=== PATIENT | female | born 1970 | race African-American/Black ===

== ENCOUNTER 2024-04-22 15:35 | Observation (INO) ==
--- NOTE | 2024-04-22 16:21 | Emergency Department Note ---
HPI - Extremity Problem General Chief complaint: Extremity Injury, Lower Stated complaint: swollen feet Time Seen by Provider: 04/22/24 15:37 Source: patient Mode of arrival: WHEELCHAIR Limitations: no limitations History of Present Illness HPI Narrative: 54-year-old female presents to ER with complaint of bilateral lower leg edema, on arrival patient has +4-5 pitting edema of her bilateral lower legs. MD Complaint: Reports extremity swelling Onset (ago): day(s) (2) Pain Consistency: Reports intermittent Location: Reports lower extremity Quality: Reports aching and other (Throbbing) Radiation: Reports none Relieving factors: Reports elevation, medication and rest Exacerbating factors: Reports weight bearing, walking and palpation Associated symptoms: Reports myalgias and arthralgias Context: Reports history of peripheral vascular disease Related Data Allergies Allergy/AdvReac Type Severity Reaction Status Date / Time No Known Drug Allergies Allergy Verified 04/22/24 21:22 Review of Systems Status of ROS 10 or more systems reviewed and unremark able except as noted in history and below; Negative unobtainable due to endotracheal tube, Negative unobtainable due to medical condition and Negative unobtainable due to mental status Constitutional Reports: fatigue; Denies: fever, chills, change in weight, malaise, night sweats, change in sleep pattern or other Eyes Denies: change in vision, blurry vision, blind spots, light sensitivity, eye discomfort, eye discharge, dry eyes, increased production of tears, floaters, seeing flashes, decreased night vision or other Ears, nose, mouth, and throat Reports: nasal congestion; Denies: throat pain, neck pain, throat swelling, difficulty swallowing, hoarseness, mouth pain, swelling of lips/tongue, dry mouth, bad breath, ear pain, ear discharge, change in hearing, tinnitus, vertigo, nasal discharge, nose bleeds, post nasal drip or other Cardiovascular Denies: chest pain, palpitations, edema, swelling of feet/ankles, lightheadedness, shortness of breath with exertion, shortness of breath when lying down, leg pain with exertion, bluish discoloration of hands/feet or other Respiratory Denies: shortness of breath, cough, wheezing, stridor, pain on inspiration, change in phlegm color, coughing up blood, chest congestion or other Gastrointestinal Reports: difficulty swallowing; Denies: abdominal pain, nausea, vomiting, coffee grounds in vomit, heartburn, diarrhea, constipation, bloating, belching, excessive passing of gas, feeling full early, change in bowel habits, painful bowel movements, rectal pain, rectal swelling, rectal itching, change in stool character, blood in stool, mucus in stool, white/light colored stool, fatty stool or other Genitourinary Denies: painful urination, urinary frequency, urinary urgency, urinary incontinence, blood in urine, difficulty voiding, decreased urine ouput, pelvic pain, painful menstruation, vaginal bleeding, vaginal discharge, irregular period, change in menstrual flow, absence of menstruation, genital lesion, genital itching, vaginal dryness, vaginal odor, pain during intercourse, difficulty conceiving, change in libido or other Musculoskeletal Reports: extremity pain and extremity swelling; Denies: back pain, neck pain, joint pain, limited range of motion, joint swelling, muscle cramps, muscle weakness, loss of height or other Integumentary/Breast Denies: rash, itching, redness, skin pain, skin tenderness, skin swelling, sores, new lesion, changing lesion, non-healing lesion, changes in skin color, jaundice, stretch collier, acne, nail changes, change in hair, breast pain, breast swelling, nipple discharge, breast mass, breast skin changes, change in breast shape or other Neurological Denies: headache, numbness in extremities, weakness in extremities, lack of coordination, dizziness, vertigo, confusion, behavioral changes, slurred speech, difficulty communicating thoughts, seizure-like activity, involuntary movements or other Psychiatric Reports: anxiety; Denies: mood swings, panic attacks, change in sleep pattern, hopelessness, loss of interest, irritability, paranoia, memory loss, difficulty concentrating, visual hallucinations, auditory hallucinations, tactile hallucinations, suicidal ideation, homicidal ideation or other Endocrine Reports: fatigue; Denies: excessive urination, excessive thirst, cold intolerance, excessive sweating, flushing, heat intolerance, deepening of the voice, change in body appearance, change in libido or other Hematologic/Lymphatic Denies: easy bruising, easy bleeding, enlarged lymph nodes or other Allergic/Immunologic Reports: wheezing; Denies: hives, throat swelling, tongue swelling, facial swelling, itchy eyes, seasonal allergies, food intolerance or other [facility] Medical History (Updated 07/18/24 @ 17:53 by Pam Beltran RN) Indigestion Stroke Surgical History (Updated 04/22/24 @ 16:15 by Renetta Pires RN) History of left hip replacement History of partial hysterectomy History of tubal ligation Social History Smoking status: current every day smoker Within the past year, how often did you have a drink containing alcohol: never Within the past year, how often did you have six or more drinks on one occasion: never Score interpretation: A score less than 3 is consistent with normal alcohol consumption. Problems where you live: no known problems Highest level of school completed/degree received: high school Feel stressed/tense/nervous/anxious/difficulty sleeping: to some extent Life stressor details: Current medical condition Gender Identity: female Exam Constitutional: normal general appearance, distress noted (moderate), abnormal body habitus (overweight), limitations noted (physical limitations) and alert Vital Signs - 24 hr 04/22/24 15:45 04/22/24 17:23 04/22/24 18:30 Temperature 99 F Pulse Rate 119 H 111 H Respiratory Rate 18 18 Blood Pressure 122/75 122/75 114/68 Pulse Oximetry 95 95 Oxygen Delivery Me thod Room Air Room Air HENMT: normocephalic, head/scalp atraumatic, hearing grossly normal bilaterally, external ears normal, EACs normal, nasal mucous membranes normal, external nose normal, oral mucous membranes normal, oropharynx normal, dentition normal and gingiva normal Eyes: PERRL, EOMs intact bilaterally, conjunctivae normal, no scleral icterus, no papilledema, normal visual ocampo by confrontation, alignment normal, periorbital findings normal and no nystagmus Neck/C-Spine: visual inspection normal, trachea midline, cervical spine nontender, cervical full ROM noted, supple, no meningeal signs and thyroid normal Lymph: no lymphadenopathy noted and no lymphedema noted Chest: inspection of chest normal, palpation of chest normal, inspection of breast(s) abnormal and palpation of breast(s) abnormal Respiratory: breath sounds equal bilaterally, normal respiratory effort, clear to auscultation bilaterally, no wheezes, no rales, no retractions and no use of accessory muscles Cardiovascular: normal heart rate noted, regular rhythm noted, no gallop, no rub, no murmur, no JVD, no clicks and no additional abnormal heart sounds Gastrointestinal: abdomen normal to inspection, abdomen soft to palpation, nontender to palpation, nondistended, normoactive bowel sounds, no hepatosplenomegaly, no masses, no pulsatile mass, no ascites and normal rectal exam (deferred) Genitourinary: no CVA tenderness, bladder normal to palpation, external appearance abnormal, vaginal abnormality noted (deferred), cervical abnormality noted, bimanual exam abnormal and inguinal lymphadenopathy noted Back/Pelvis: spine normal to inspection, no thoracic spine tenderness, no lumbar spine tenderness, thoracic spine ROM normal, lumbar spine ROM normal and no paraspinal muscle tenderness noted Extremities: normal to inspection, abnormal to palpation, tenderness noted, full ROM, no joint enlargement and no deformity Patient has bilateral lower leg +5 pitting edema with tenderness on palpation and with range of motion. 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, no movement abnormality noted, no focal motor deficit noted, no sensory deficits noted, gait abnormality noted (unable to access), speech normal, coordination normal, no pronator drift noted, no fasciculations noted and GCS normal Psychiatry: Mental Status Exam documented within this Exam's Psych section mental status grossly normal, oriented x3, thought process normal, cooperative, affect normal, psychomotor activity normal and memory normal Feel stressed/tense/nervous/anxious/difficulty sleeping: to some extent Life stressor details: Current medical condition Skin: skin color normal, no rash, no lesions, no ecchymosis noted, no wounds, no lacerations, skin turgor normal, no jaundice, no petechiae, no mottling, nails normal and no alopecia Course Course Hospital Course: 1800 - Handoff rec'd from Liam Pires, PERFORMANCE ANALYST. Pending dispo. Pt with K+ 2.2 and +4 alysa LE swelling. Rec'd Bumex 2mg IV and 40meq PO Potassium. Vital Signs Vital signs: Vital Signs Temperature 99 F 04/22/24 15:45 Pulse Rate 119 H 04/22/24 15:45 Respiratory Rate 18 04/22/24 15:45 Blood Pressure 122/75 04/22/24 15:45 Pulse Oximetry 95 04/22/24 15:45 Oxygen Delivery Method Room Air 04/22/24 15:45 Temperature 98.7 F 04/23/24 03:58 Pulse Rate 100 H 04/23/24 03:58 Respiratory Rate 19 04/23/24 03:58 Blood Pressure 110/67 04/23/24 03:58 Pulse Oximetry 90 L 04/23/24 03:58 Oxygen Delivery Method Room Air 04/23/24 03:58 MDM - Extremity (Nontraumatic) MDM Narrative Medical decision making narrative: Pt with +4 alysa pitting edema. Rec'd 2mg IV Bumex. K+ 2.2. Has received 40meq PO Potassium thus far. Given patient's severe hypokalemia, I have deemed the patient will need admission for further potassium replacement. I have discussed the clinical case including, pertinent positives and negatives with Geovanna in Utilization Review, and the need for further testing/observation in the inpatient arena. She agrees pt meets criteria for observation status. I have made the patient aware of the current disposition plan and she is in agreement. Differential Diagnosis Differential diagnosis: Likely cellulitis, superficial thrombophlebitis, lower extremity edema, deep vein thrombosis of lower extremity and other (CHF, Arterial Occlusion) Medical Records Attestation: I reviewed the patient's medical records. Lab Data Attestation: I reviewed the patient's lab results. Labs: Lab Results 04/22/24 04/22/24 Range/Units 16:30 17:55 WBC 11.6 H (4.3-9.3) K/uL RBC 4.6 (4.00-5.50) M/uL Hgb 12.8 (12.5-15.8) gm/dL Hct 39.7 (35.9-46.7) % MCV 85.7 (81.0-93.7) fl MCH 27.5 L (27.6-32.2) pg MCHC 32.1 L (33.1-35.3) g/dl RDW 15.6 H (11.4-14.2) % Plt Count 455 H (152-353) K/uL MPV 6.8 L (6.9-10.8) fl Gran % 67.1 (47.8-71.3) % Lymph % (Auto) 28.4 (20.0-43.0) % [place] % (Auto) 3.9 (3.6-9.8) % Eos % (Auto) 0.0 L (0.4-2.8) % Baso % (Auto) 0.6 (0.1-0.85) Lymph # (Auto) 3.3 H (1.1-3.1) [place] # (Auto) 0.5 L (1.1-3.1) Eos # (Auto) 0.0 (0.0-0.2) Baso # (Auto) 0.1 (0.0-0.1) Absolute Gran (auto) 7.8 H (2.3-6.0) Sodium 143 (136-145) mmol/L Potassium 2.2 L* (3.6-5.2) mmol/L Chloride 100.0 (98-107) mmol/L Carbon Dioxide 32 (21-32) mmol/L Anion Gap 11.0 (4-14) mEq/L BUN 6 L (7-18) mg/dL Creatinine 0.7 (0.6-1.3) mg/dL Estimated GFR 102.7 (>59.9) Glucose 154 H (70-110) mg/dL Calcium 9.8 (8.5-10.1) mg/dL B-Natriuretic Peptide 6.7 (0-100) pg/mL Urine Color Yellow (STRAW/YELL.) Urine Appearance Clear (CLEAR) Ur Specific [place] 1.010 (1.001-1.035) Urine Protein Negative (NEGATIVE) Urine Glucose (UA) Normal (NORMAL) Urine Ketones Negative (NEGATIVE) Urine Occult Blood Negative (NEG - TRACE) Urine Nitrite Negative (NEGATIVE) Urine Bilirubin Negative (NEGATIVE) Urine Urobilinogen Normal (NORMAL) Ur Leukocyte Esterase Negative (NEGATIVE) Fluid pH 7.0 (5 - 9) Imaging Data Imaging ordered: Venous US Attestation: I have reviewed the pertinent imaging results. Radiologist's impression: EXAM: US ARTERIAL DUPLEX LE LT HISTORY: ABSENT PULSE LT FOOT/EDEMA ; COMPARISON: None. TECHNIQUE: Grayscale, color-flow, and Doppler images FINDINGS: There is plaque in the left common femoral artery but good color flow and normal Doppler waveform. There is flow in the superficial femoral artery proximally, mid, and distally with normal color flow normal Doppler waveforms. In the popliteal fossa there is a normal arterial waveform and color flow the vessel is poorly visualized. There is normal color flow normal Doppler in the posterior tibial artery and in the dorsalis pedis artery. There is extensive edema in the dorsum of the foot. Common femoral artery 131 centimeter/second SFA proximal 112 centimeter/second SFA mid 137 centimeters/second SFA distal 110 centimeters/second Popliteal proximal 70 centimeters/second Popliteal distal 53 centimeters/second Posterior tibial artery proximal 49 centimeters/second Posterior tibial artery mid 69 centimeters/second Posterior tibial artery distal 38 centimeters/second Dorsalis pedis artery 52 centimeters/second IMPRESSION: There is disease in the arterial system but there is flow to the foot. Severe edema in the dorsum of the foot. THIS IS AN ELECTRONICALLY VERIFIED FINAL REPORT 04/22/2024 6:39 PM - Electronically signed by Ck Reagan MD Smoking Cessation Time spent discussing smoking cessation with patient: 3 to 10 minutes Patient Acknowledges Need for Cessation: No Additional Comments: I have discussed with and counseled the patient on the health risk of tobacco and cigarette smoke, including heart disease and stroke. There is also the obvious economic benefit to quitting smoking. I have encouraged the patient to pick a date and stop smoking and follow-up with their primary care provider for more information on smoking cessation. I have assured they are aware of the available resources. This included approximately 3 to 5 minutes of education, interaction and documentation. Discharge Plan Discharge Patient Disposition: Admitted As Observation Condition: Improved Clinical Impression: Bilateral lower extremity edema, Acute hypokalemia, Tobacco abuse Interventions: ED Discharge Assessment Last Done: 04/22/24 19:55 ED Discharge Vital Sign Last Done: 04/22/24 19:55 Emergency Department Charge Sheet Last Done: 04/22/24 19:55 Time of Disposition: 18:30 Discharge Date/Time: 04/22/24 19:56
[2024-04-22 16:42] LABS: Basophils #(Absolute) Auto 0.1 (0.0-0.1); Basophils%(Percent) Auto 0.6 (0.1-0.85); Granulocytes % - Auto 67.1 % (47.8-71.3); Granulocytes#(Absolute)- Auto 7.8 (2.3-6.0); Hematocrit 39.7 % (35.9-46.7); Mean Corpuscular Volume 85.7 fl (81.0-93.7); Monocytes #(Absolute)- Auto 0.5 (1.1-3.1); Monocytes %(Percent)- Auto 3.9 % (3.6-9.8); Platelet Count 455 K/uL (152-353); White Blood Count 11.6 K/uL (4.3-9.3)
[2024-04-22] MEDS ORDERED: BUMETANIDE 1 MG/4 ML VIAL ONE ×2 (16:51→17:10)
[2024-04-22 17:05] LABS: Potassium 2.2 mmol/L (3.6-5.2)
[2024-04-22] MEDS ORDERED: 0.9 % SODIUM CHLORIDE 50 ML IV ONE (17:19)
[2024-04-22] MEDS: BUMETANIDE 1 MG/4 ML VIAL IVP ONE (17:23)
[2024-04-22] MEDS ORDERED: POTASSIUM CL 40 MEQ/30 ML 40 MEQ/30 ML LIQUID PO ONE (17:24)
[2024-04-22] MEDS: POTASSIUM CL 40 MEQ/30 ML 40 MEQ/30 ML LIQUID PO STA (17:26)
[2024-04-22] MEDS: NICOTINE 21 MG/HR .TD24 TD STA (17:50)
[2024-04-22 18:06] LABS: Urine Appearance CLEAR (CLEAR); Urine Blood NEGATIVE (NEG - TRACE); Urine Color YELLOW (STRAW/YELL.); Urine Urobilinogen Normal (NORMAL)
[2024-04-22] MEDS ORDERED: ONDANSETRON HCL/PF 4 MG/2 ML VIAL INJ PRN (20:54)
[2024-04-22] MEDS ORDERED: bisacodyL 10 MG SUPP.RECT PR PRN (20:54)
[2024-04-22] MEDS ORDERED: MAGNESIUM, ALUMINUM HYDROXIDE 30 ML ORAL.SUSP PO PRN (20:54)
[2024-04-22] MEDS: ACETAMINOPHEN 500 MG TABLET PO PRN (21:40)
[2024-04-23] MEDS: HYDROCODONE/ACETAMINOPHEN 5/325 MG TABLET PO ONE (01:26)
[2024-04-23 05:03] LABS: Potassium 2.5 mmol/L (3.6-5.2)
[2024-04-23 05:13] LABS: Basophils #(Absolute) Auto 0.1 (0.0-0.1); Eosinophils%(Percent) Auto 0.1 % (0.4-2.8); Granulocytes % - Auto 54.5 % (47.8-71.3); Granulocytes#(Absolute)- Auto 5.4 (2.3-6.0); Hematocrit 37.7 % (35.9-46.7); Mean Corpuscular Volume 86.1 fl (81.0-93.7); Monocytes #(Absolute)- Auto 0.5 (1.1-3.1); Monocytes %(Percent)- Auto 4.8 % (3.6-9.8); Platelet Count 421 K/uL (152-353); White Blood Count 9.9 K/uL (4.3-9.3)
[2024-04-23 08:13] VITALS: RESP 20
[2024-04-23] MEDS: ENOXAPARIN SODIUM 40 MG/0.4 ML SYRINGE SUBQ SCH (08:29)
[2024-04-23] MEDS: PANTOPRAZOLE SODIUM 40 MG TABLET.DR PO SCH (08:29)
[2024-04-23] MEDS ORDERED: MAGNESIUM SULFATE/D5W 1 GM/100 ML PIGGYBACK IV ONE (11:35)
[2024-04-23] MEDS ORDERED: POTASSIUM CHLORIDE IN WATER 10 MEQ/100 ML PIGGYBACK IV ONE ×2 (11:45→13:00)
[2024-04-23 12:06] VITALS: BP 131/81; PULSE 102; TEMP 98.3
[2024-04-23] MEDS ORDERED: MAGNESIUM OXIDE 400 MG TABLET PO SCH (13:00)
[2024-04-23] MEDS ORDERED: POTASSIUM CHLORIDE 20 MEQ TAB.ER.PRT PO SCH (13:00)
[2024-04-23] MEDS: POTASSIUM CHLORIDE 20 MEQ TAB.ER.PRT PO ONE (13:01)
[2024-04-23] MEDS: MAGNESIUM OXIDE 400 MG TABLET PO ONE (13:01)
--- NOTE | 2024-04-23 13:42 | Discharge Summary ---
DS: Providers Provider Date of admission: 04/22/24 18:57 Primary care physician: Tanmay Charles MD DS: Summary Hospital Course Hospital Course: 1800 - Handoff rec'd from Liam Pires NP. Pending dispo. Pt with K+ 2.2 and +4 alysa LE swelling. Rec'd Bumex 2mg IV and 40meq PO Potassium. Time Spent with Patient Time attestation: Total time spent providing and/or coordinating discharge services: Exam Constitutional: abnormal general appearance (disheveled) and (chronically ill), distress noted (moderate), abnormal body habitus (overweight), limitations noted (physical limitations) and alert Vital Signs - 24 hr 04/22/24 15:45 04/22/24 17:23 04/22/24 18:30 Temperature 99 F Pulse Rate 119 H 111 H Pulse Rate [Bilate ral] Respiratory Rate 18 18 Blood Pressure 122/75 122/75 114/68 Blood Pressure [Ri ght Radial Artery] Pulse Oximetry 95 95 Oxygen Delivery Ak thod Room Air Room Air 04/22/24 19:30 04/22/24 19:46 04/22/24 19:55 Temperature Pulse Rate 112 H 112 H Pulse Rate [Bilate ral] Respiratory Rate 18 18 Blood Pressure 122/86 114/78 114/78 Blood Pressure [Ri ght Radial Artery] Pulse Oximetry 95 95 Oxygen Delivery Ak thod Room Air 04/22/24 20:53 04/22/24 22:00 04/22/24 23:48 Temperature 98.6 F 99.2 F Pulse Rate Pulse Rate [Bilate ral] 113 H 103 H Respiratory Rate 22 17 Blood Pressure Blood Pressure [Ri ght Radial Artery] 128/81 107/53 Pulse Oximetry 94 L 92 L Oxygen Delivery Ak thod Room Air Room Air Room Air 04/23/24 03:58 04/23/24 08:00 04/23/24 12:00 Temperature 98.7 F 98.4 F 98.3 F Pulse Rate Pulse Rate [Bilate ral] 100 H 93 H 102 H Respiratory Rate 19 20 20 Blood Pressure Blood Pressure [Ri ght Radial Artery] 110/67 138/72 131/81 Pulse Oximetry 90 L 92 L 93 L Oxygen Delivery Ak thod Room Air Room Air Room Air HENMT: normocephalic, head/scalp atraumatic, hearing grossly normal bilaterally, external ears normal, EACs normal, nasal mucous membranes normal, external nose normal, oral mucous membranes normal, oropharynx abnormal, dentition abnormal and gingiva normal Eyes: PERRL, EOMs intact bilaterally, conjunctivae normal, no scleral icterus, no papilledema, normal visual ocampo by confrontation, alignment normal, periorbital findings normal and no nystagmus Neck/C-Spine: trachea midline, cervical spine nontender, abnormal cervical ROM noted, supple, no meningeal signs and thyroid normal Lymph: no lymphadenopathy noted and no lymphedema noted Chest: inspection of chest normal, palpation of chest normal, inspection of breast(s) abnormal and palpation of breast(s) abnormal Respiratory: breath sounds equal bilaterally, normal respiratory effort, clear to auscultation bilaterally, no wheezes, no rales, no retractions and no use of accessory muscles Cardiovascular: heart rate abnormal (tachycardic), regular rhythm noted, no gallop, no rub, no murmur, no JVD, no clicks, peripheral pulses 2+ throughout and no additional abnormal heart sounds Gastrointestinal: abdomen normal to inspection, abdomen soft to palpation, nontender to palpation, nontender to percussion, nondistended, normoactive bowel sounds, no hepatosplenomegaly, no masses, no pulsatile mass, no ascites and normal rectal exam (deferred) Genitourinary: no CVA tenderness, bladder normal to palpation, external appearance abnormal, vaginal abnormality noted (deferred), cervical abnormality noted, bimanual exam abnormal and inguinal lymphadenopathy noted Back/Pelvis: spine normal to inspection, no thoracic spine tenderness, no lumbar spine tenderness, thoracic spine ROM normal, lumbar spine ROM normal and no paraspinal muscle tenderness noted Extremities: normal to inspection, abnormal to palpation, tenderness noted, full ROM, no joint enlargement and no deformity Patient has bilateral lower leg +5 pitting edema with tenderness on palpation and with range of motion. 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, no movement abnormality noted, no focal motor deficit noted, no sensory deficits noted, gait abnormality noted (unable to access), speech normal, coordination normal, no pronator drift noted, no fasciculations noted and GCS normal Psychiatry: Mental Status Exam documented within this Exam's Psych section mental status abnormal, oriented x3, thought process abnormality noted, uncooperative, affect abnormality noted (depressed) and (tearful), psychomotor abnormality noted (agitated) and (restless) and memory normal Feel stressed/tense/nervous/anxious/difficulty sleeping: to some extent Life stressor details: Current medical condition Skin: skin color normal, no rash, no lesions, no ecchymosis noted, no wounds, no lacerations, skin turgor abnormal, no jaundice, no petechiae, no mottling, nails normal and no alopecia DS: Data Data Completed and Pending Labs on day of discharge: Labs from last 24 hours 04/23/24 04/22/24 04/22/24 04:20 17:55 16:30 WBC 9.9 H 11.6 H RBC 4.4 4.6 Hgb 12.2 L 12.8 Hct 37.7 39.7 MCV 86.1 85.7 MCH 27.9 27.5 L MCHC 32.4 L 32.1 L RDW 15.7 H 15.6 H Plt Count 421 H 455 H MPV 6.8 L 6.8 L Gran % 54.5 67.1 Lymph % (Auto) 39.6 28.4 [place] % (Auto) 4.8 3.9 Eos % (Auto) 0.1 L 0.0 L Baso % (Auto) 1.0 H 0.6 Lymph # (Auto) 3.9 H 3.3 H [place] # (Auto) 0.5 L 0.5 L Eos # (Auto) 0.0 0.0 Baso # (Auto) 0.1 0.1 Absolute Gran (auto) 5.4 7.8 H Sodium 143 143 Potassium 2.5 L 2.2 L* Chloride 102.0 100.0 Carbon Dioxide 34 H 32 Anion Gap 7.0 11.0 BUN 5 L 6 L Creatinine 0.6 0.7 Estimated GFR 106.6 102.7 Glucose 105 154 H Calcium 9.7 9.8 Phosphorus 2.5 Magnesium 1.6 L Total Bilirubin 0.26 AST 18 ALT 18 L Alkaline Phosphatase 131 B-Natriuretic Peptide 6.7 Total Protein 6.8 Albumin 2.7 L Triglycerides 91 Cholesterol 196 LDL Cholesterol 102.0 H VLDL Cholesterol, Calc 18 HDL Cholesterol 69 LDL/HDL Ratio 1.5 Cholesterol/HDL Ratio 2 Urine Color Yellow Urine Appearance Clear Ur Specific [place] 1.010 Urine Protein Negative Urine Glucose (UA) Normal Urine Ketones Negative Urine Occult Blood Negative Urine Nitrite Negative Urine Bilirubin Negative Urine Urobilinogen Normal Ur Leukocyte Esterase Negative Fluid pH 7.0 Discharge Plan Discharge Condition: Improved Hospital Course: 1800 - Handoff rec'd from Liam Pires NP. Pending dispo. Pt with K+ 2.2 and +4 alysa LE swelling. Rec'd Bumex 2mg IV and 40meq PO Potassium. Interventions: MED/SURG & ICU Observation Charge Sheet Last Done: 04/23/24 06:21 Print Language: Malawian Follow-Ups: Tanmay Charles MD [Primary Care Provider] -
[2024-04-23] MEDS ORDERED: POTASSIUM PHOS M BASIC D BASIC IV ONE (14:00)
[2024-04-23] MEDS ORDERED: SODIUM CHLORIDE 0.9% IV ONE (14:00)
--- NOTE | 2024-04-23 14:05 | Short Stay Summary ---
H&P: HPI History of Present Illness Chief complaint: SEVERE ADELE LE EDEMA,SEVERE HYPOKALEMIA,TOBACCO ABU Narrative: 54-year-old female presents to ER with complaint of bilateral lower leg edema, on arrival patient has +4-5 pitting edema of her bilateral lower legs. hurts all over and does not feel well and increased agitation and shortness of breath MD Complaint: Reports extremity swelling Onset (ago): day(s) 2-7 days very poor historian and the story changes every time a question is readdressed by the examiner Review of Systems Status of ROS 10 or more systems reviewed and unremark able except as noted in history and below; Negative unobtainable due to endotracheal tube, Negative unobtainable due to medical condition and Negative unobtainable due to mental status Constitutional Reports: fatigue; Denies: fever, chills, change in weight, malaise, night sweats, change in sleep pattern or other Eyes Denies: change in vision, blurry vision, blind spots, light sensitivity, eye discomfort, eye discharge, dry eyes, increased production of tears, floaters, seeing flashes, decreased night vision or other Ears, nose, mouth, and throat Reports: difficulty swallowing and nasal congestion; Denies: throat pain, neck pain, throat swelling, hoarseness, mouth pain, swelling of lips/tongue, dry mouth, bad breath, ear pain, ear discharge, change in hearing, tinnitus, vertigo, nasal discharge, nose bleeds, post nasal drip or other Cardiovascular Denies: chest pain, palpitations, edema, swelling of feet/ankles, lightheadedness, shortness of breath with exertion, shortness of breath when lying down, leg pain with exertion, bluish discoloration of hands/feet or other Respiratory Reports: wheezing; Denies: shortness of breath, cough, stridor, pain on inspiration, change in phlegm color, coughing up blood, chest congestion or other Gastrointestinal Reports: difficulty swallowing; Denies: abdominal pain, nausea, vomiting, coffee grounds in vomit, heartburn, diarrhea, constipation, bloating, belching, excessive passing of gas, feeling full early, change in bowel habits, painful bowel movements, rectal pain, rectal swelling, rectal itching, change in stool character, blood in stool, mucus in stool, white/light colored stool, fatty stool or other Genitourinary Denies: painful urination, urinary frequency, urinary urgency, urinary incontinence, blood in urine, difficulty voiding, decreased urine ouput, pelvic pain, painful menstruation, vaginal bleeding, vaginal discharge, irregular period, change in menstrual flow, absence of menstruation, genital lesion, genital itching, vaginal dryness, vaginal odor, pain during intercourse, difficulty conceiving, change in libido or other Musculoskeletal Reports: extremity pain and extremity swelling; Denies: back pain, neck pain, joint pain, limited range of motion, joint swelling, muscle cramps, muscle weakness, loss of height or other Integumentary/Breast Denies: rash, itching, redness, skin pain, skin tender ness, skin swelling, sores, new lesion, changing lesion, non-healing lesion, changes in skin color, jaundice, stretch collier, acne, nail changes, change in hair, breast pain, breast swelling, nipple discharge, breast mass, breast skin changes, change in breast shape or other Neurological Denies: headache, numbness in extremities, weakness in extremities, lack of coordination, dizziness, vertigo, confusion, behavioral changes, slurred speech, difficulty communicating thoughts, seizure-like activity, involuntary movements or other Psychiatric Reports: anxiety; Denies: mood swings, panic attacks, change in sleep pattern, hopelessness, loss of interest, irritability, paranoia, memory loss, difficulty concentrating, visual hallucinations, auditory hallucinations, tactile hallucinations, suicidal ideation, homicidal ideation or other Endocrine Reports: fatigue; Denies: excessive urination, excessive thirst, cold intolerance, excessive sweating, flushing, heat intolerance, deepening of the voice, change in body appearance, change in libido or other Hematologic/Lymphatic Denies: easy bruising, easy bleeding, enlarged lymph nodes or other Allergic/Immunologic Reports: wheezing; Denies: hives, throat swelling, tongue swelling, facial swelling, itchy eyes, seasonal allergies, food intolerance or other [facility] Medical History (Updated 04/23/24 @ 13:58 by Anastasia Hastings DO) Hypoalbuminemia Tachycardia Hypertension Physical debility Indigestion Stroke Surgical History History of left hip replacement History of partial hysterectomy History of tubal ligation Social History Smoking status: current every day smoker Within the past year, how often did you have a drink containing alcohol: never Within the past year, how often did you have six or more drinks on one occasion: never Score interpretation: A score less than 3 is consistent with normal alcohol consumption. Problems where you live: no known problems Highest level of school completed/degree received: high school Feel stressed/tense/nervous/anxious/difficulty sleeping: to some extent Life stressor details: Current medical condition Gender Identity: female Meds Home Medications and Allergies Allergies Allergy/AdvReac Type Severity Reaction Status Date / Time No Known Drug Allergies Allergy Verified 04/22/24 21:22 Exam Constitutional: abnormal general appearance (disheveled), (chronically ill) and (frail appearing), distress noted (moderate), abnormal body habitus (overweight), limitations noted (physical limitations) and alert Vital Signs - 24 hr 04/22/24 15:45 04/22/24 17:23 04/22/24 18:30 Temperature 99 F Pulse Rate 119 H 111 H Pulse Rate [Bilate ral] Respiratory Rate 18 18 Blood Pressure 122/75 122/75 114/68 Blood Pressure [Ri ght Radial Artery] Pulse Oximetry 95 95 Oxygen Delivery Az thod Room Air Room Air 04/22/24 19:30 04/22/24 19:46 04/22/24 19:55 Temperature Pulse Rate 112 H 112 H Pulse Rate [Bilate ral] Respiratory Rate 18 18 Blood Pressure 122/86 114/78 114/78 Blood Pressure [Ri ght Radial Artery] Pulse Oximetry 95 95 Oxygen Delivery Az thod Room Air 04/22/24 20:53 04/22/24 22:00 04/22/24 23:48 Temperature 98.6 F 99.2 F Pulse Rate Pulse Rate [Bilate ral] 113 H 103 H Respiratory Rate 22 17 Blood Pressure Blood Pressure [Ri ght Radial Artery] 128/81 107/53 Pulse Oximetry 94 L 92 L Oxygen Delivery Az thod Room Air Room Air Room Air 04/23/24 03:58 04/23/24 08:00 04/23/24 12:00 Temperature 98.7 F 98.4 F 98.3 F Pulse Rate Pulse Rate [Bilate ral] 100 H 93 H 102 H Respiratory Rate 19 20 20 Blood Pressure Blood Pressure [Ri ght Radial Artery] 110/67 138/72 131/81 Pulse Oximetry 90 L 92 L 93 L Oxygen Delivery Az thod Room Air Room Air Room Air HENMT: normocephalic, head/scalp atraumatic, hearing grossly normal bilaterally, external ears normal, EACs normal, nasal mucous membranes normal, external nose normal, oral mucous membranes normal, oropharynx normal, dentition abnormal and gingiva normal Eyes: PERRL, EOMs intact bilaterally, conjunctivae normal, no scleral icterus, papilledema noted, normal visual ocampo by confrontation, alignment abnormal, periorbital findings normal and no nystagmus Neck/C-Spine: visual inspection normal, trachea midline, cervical spine nontender, cervical full ROM noted, supple, no meningeal signs and thyroid normal Lymph: no lymphadenopathy noted and no lymphedema noted Chest: inspection of chest normal, palpation of chest normal, inspection of breast(s) abnormal and palpation of breast(s) abnormal Respiratory: breath sounds equal bilaterally, normal respiratory effort, auscultation abnormal, no wheezes, no rales, no retractions and no use of accessory muscles Cardiovascular: heart rate abnormal (tachycardic), regular rhythm noted, no gallop, no rub, no murmur, no JVD, no clicks, peripheral pulses 2+ throughout, no bruits noted and no additional abnormal heart sounds Gastrointestinal: abdomen normal to inspection, abdomen soft to palpation, nontender to palpation, nondistended, normoactive bowel sounds, hepatosplenomegaly noted, no masses, no pulsatile mass, no ascites, hernia noted and normal rectal exam (deferred) Genitourinary: no CVA tenderness and bladder normal to palpation Back/Pelvis: no thoracic spine tenderness, lumbar spine tenderness noted, thoracic spine ROM abnormal, lumbar spine ROM abnormal, no paraspinal muscle tenderness noted and straight leg raise abnormal Extremities: normal to inspection, abnormal to palpation, tenderness noted, full ROM, no joint enlargement and deformity noted Patient has bilateral lower leg +5 pitting edema with tenderness on palpation and with range of motion. 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 Neurology: health safety coordinator II-XII intact, no movement abnormality noted, no focal motor deficit noted, no sensory deficits noted, deep tendon reflexes as noted:, gait abnormality noted (unable to access), speech normal, coordination normal, no pronator drift noted, no fasciculations noted and GCS normal Psychiatry: Mental Status Exam documented within this Exam's Psych section mental status abnormal (agitated), oriented x3, thought process abnormality noted, uncooperative, affect abnormality noted (anxious) and (tearful), psychomotor abnormality noted (agitated) and (restless) and memory normal Feel stressed/tense/nervous/anxious/difficulty sleeping: decline to answer Life stressor details: Current medical condition Skin: skin color abnormal, no rash, no lesions, no ecchymosis noted, no wounds, no lacerations, skin turgor abnormal, no jaundice, no petechiae, no mottling, nails abnormality noted and alopecia noted Assessment and Plan Assessment and Plan (1) Hypokalemia: Code(s): E87.6 - Hypokalemia (2) Hypoalbuminemia: Code(s): E88.09 - Other disorders of plasma-protein metabolism, not elsewhere classified (3) Tobacco abuse counseling: Code(s): Z71.6 - Tobacco abuse counseling (4) Nicotine dependence: Qualifiers: Nicotine product type: cigarettes Substance use status: other nicotine- induced disorder Qualified Code(s): F17.218 - Nicotine dependence, cigarettes, with other nicotine-induced disorders Code(s): F17.200 - Nicotine dependence, unspecified, uncomplicated (5) Physical debility: Code(s): R53.81 - Other malaise (6) Hypertension: Qualifiers: Hypertension type: primary hypertension Qualified Code(s): I10 - Essential (primary) hypertension Code(s): I10 - Essential (primary) hypertension (7) Tachycardia: Code(s): R00.0 - Tachycardia, unspecified Plan cautious IV hydration once albumin administered since albumin so low replace electrolytes as directed patient refused to stay and complete replacement and albumin even if she could or have a fall and fractures or other damage she kept calling nursing and screaming out she wanted to go home and very irrational and she signed AMA papers and left with family when they showed up in the facility Results Labs Labs: CBC WBC 9.9 K/uL (4.3-9.3) H 04/23/24 04:20 RBC 4.4 M/uL (4.00-5.50) 04/23/24 04:20 Hgb 12.2 gm/dL (12.5-15.8) L 04/23/24 04:20 Hct 37.7 % (35.9-46.7) 04/23/24 04:20 MCV 86.1 fl (81.0-93.7) 04/23/24 04:20 MCH 27.9 pg (27.6-32.2) 04/23/24 04:20 MCHC 32.4 g/dl (33.1-35.3) L 04/23/24 04:20 RDW 15.7 % (11.4-14.2) H 04/23/24 04:20 Plt Count 421 K/uL (152-353) H 04/23/24 04:20 MPV 6.8 fl (6.9-10.8) L 04/23/24 04:20 Gran % 54.5 % (47.8-71.3) 04/23/24 04:20 Lymph % (Auto) 39.6 % (20.0-43.0) 04/23/24 04:20 [place] % (Auto) 4.8 % (3.6-9.8) 04/23/24 04:20 Eos % (Auto) 0.1 % (0.4-2.8) L 04/23/24 04:20 Baso % (Auto) 1.0 (0.1-0.85) H 04/23/24 04:20 Lymph # (Auto) 3.9 (1.1-3.1) H 04/23/24 04:20 [place] # (Auto) 0.5 (1.1-3.1) L 04/23/24 04:20 Eos # (Auto) 0.0 (0.0-0.2) 04/23/24 04:20 Baso # (Auto) 0.1 (0.0-0.1) 04/23/24 04:20 Absolute Gran (auto) 5.4 (2.3-6.0) 04/23/24 04:20 BMP Sodium 143 mmol/L (136-145) 04/23/24 04:20 Potassium 2.5 mmol/L (3.6-5.2) L 04/23/24 04:20 Chloride 102.0 mmol/L (98-107) 04/23/24 04:20 Carbon Dioxide 34 mmol/L (21-32) H 04/23/24 04:20 Anion Gap 7.0 mEq/L (4-14) 04/23/24 04:20 BUN 5 mg/dL (7-18) L 04/23/24 04:20 Creatinine 0.6 mg/dL (0.6-1.3) 04/23/24 04:20 Estimated GFR 106.6 (>59.9) 04/23/24 04:20 Glucose 105 mg/dL (70-110) 04/23/24 04:20 Calcium 9.7 mg/dL (8.5-10.1) 04/23/24 04:20 Phosphorus 2.5 mg/dL (2.5-4.9) 04/23/24 04:20 Magnesium 1.6 mg/dL (1.8-2.4) L 04/23/24 04:20 Total Bilirubin 0.26 mg/dL (0.0-1.0) 04/23/24 04:20 AST 18 U/L (15-37) 04/23/24 04:20 ALT 18 U/L (30-65) L 04/23/24 04:20 Alkaline Phosphatase 131 U/L (50-136) 04/23/24 04:20 Total Protein 6.8 g/dL (6.4-8.2) 04/23/24 04:20 Albumin 2.7 g/dL (3.4-5.0) L 04/23/24 04:20 Liver Function Total Bilirubin 0.26 mg/dL (0.0-1.0) 04/23/24 04:20 AST 18 U/L (15-37) 04/23/24 04:20 ALT 18 U/L (30-65) L 04/23/24 04:20 Alkaline Phosphatase 131 U/L (50-136) 04/23/24 04:20 Total Protein 6.8 g/dL (6.4-8.2) 04/23/24 04:20 Albumin 2.7 g/dL (3.4-5.0) L 04/23/24 04:20 Urine Urine Color Yellow (STRAW/YELL.) 04/22/24 17:55 Urine Appearance Clear (CLEAR) 04/22/24 17:55 Ur Specific [place] 1.010 (1.001-1.035) 04/22/24 17:55 Urine Protein Negative (NEGATIVE) 04/22/24 17:55 Urine Glucose (UA) Normal (NORMAL) 04/22/24 17:55 Urine Ketones Negative (NEGATIVE) 04/22/24 17:55 Urine Occult Blood Negative (NEG - TRACE) 04/22/24 17:55 Urine Nitrite Negative (NEGATIVE) 04/22/24 17:55 Urine Bilirubin Negative (NEGATIVE) 04/22/24 17:55 Urine Urobilinogen Normal (NORMAL) 04/22/24 17:55 Ur Leukocyte Esterase Negative (NEGATIVE) 04/22/24 17:55 Pulse Oximetry Attestation: I have reviewed the pertinent pulse oximetry results. ECG Attestation: I have reviewed the pertinent ECG results. Imaging Imaging ordered: Chest x-ray and Venous US Radiologist's impression: Imaging ordered: Venous US Attestation: I have reviewed the pertinent imaging results. Radiologist's impression: EXAM: US ARTERIAL DUPLEX LE LT HISTORY: ABSENT PULSE LT FOOT/EDEMA ; COMPARISON: None. TECHNIQUE: Grayscale, color-flow, and Doppler images FINDINGS: There is plaque in the left common femoral artery but good color flow and normal Doppler waveform. There is flow in the superficial femoral artery proximally, mid, and distally with normal color flow normal Doppler waveforms. In the popliteal fossa there is a normal arterial waveform and color flow the vessel is poorly visualized. There is normal color flow normal Doppler in the posterior tibial artery and in the dorsalis pedis artery. There is extensive edema in the dorsum of the foot. Common femoral artery 131 centimeter/second SFA proximal 112 centimeter/second SFA mid 137 centimeters/second SFA distal 110 centimeters/second Popliteal proximal 70 centimeters/second Popliteal distal 53 centimeters/second Posterior tibial artery proximal 49 centimeters/second Posterior tibial artery mid 69 centimeters/second Posterior tibial artery distal 38 centimeters/second Dorsalis pedis artery 52 centimeters/second IMPRESSION: There is disease in the arterial system but there is flow to the foot. Severe edema in the dorsum of the foot. DS: Providers Provider Date of admission: 04/22/24 18:57 Primary care physician: Tanmay Charles MD Admitting clinician: Colton Pires Attending physician on admission: Anastasia Hastings Attending physician on discharge: Anastasia Hastings Discharging clinician: Anastasia Hastings Anticipated date of discharge: 04/23/24 DS: Summary Hospital Course Hospital Course: 1800 - Handoff rec'd from Liam Pires NP. Pending dispo. Pt with K+ 2.2 and +4 adele LE swelling. Rec'd Bumex 2mg IV and 40meq PO Potassium. patient refused to stay and complete replacement and albumin even if she could or have a fall and fractures or other damage she kept calling nursing and screaming out she wanted to go home and very irrational and she signed AMA p apers and left with family when they showed up in the facility. patient agitated at discharge and adamant she wanted to go home to the point of being aggressive with staff verbally and being a hindrance to staff and other patients and there care. states she has potassium at home and does not need to stay since she feels better and she will eat more protein and she denies any current drug abuse so does not need any interventions Time spent discussing smoking cessation with patient: more than 10 minutes Status at Discharge Functional status at discharge: uses cane/walker Overall status at discharge: patient is progressing back to baseline Time Spent with Patient Time attestation: Total time spent providing and/or coordinating discharge services: Time spent: greater than 30 minutes Discharge Plan Discharge Disposition: Left Against Medical Advice Condition: Improved Anticipated Discharge Date/Time: 04/23/24 14:03 Activity: increase activity as tolerated Diet: advance to your usual diet Hospital Course: 1800 - Handoff rec'd from Liam Pires NP. Pending dispo. Pt with K+ 2.2 and +4 adele LE swelling. Rec'd Bumex 2mg IV and 40meq PO Potassium. patient refused to stay and complete replacement and albumin even if she could or have a fall and fractures or other damage she kept calling nursing and screaming out she wanted to go home and very irrational and she signed AMA papers and left with family when they showed up in the facility. patient agitated at discharge and adamant she wanted to go home to the point of being aggressive with staff verbally and being a hindrance to staff and other patients and there care. states she has potassium at home and does not need to stay since she feels better and she will eat more protein and she denies any current drug abuse so does not need any interventions Interventions: Discharge Assessment Last Done: 04/23/24 13:41 MED/SURG & ICU Observation Charge Sheet Last Done: 04/23/24 06:21 Print Language: Bulgarian Forms: Portal/Health Info Access Inst Follow-Ups: Tanmay Charles MD [Primary Care Provider] - Discharge Date/Time: 04/23/24 13:42
[2024-04-23] MEDS ORDERED: POTASSIUM PHOSPHATE 500 MG TABLET.SOL PO SCH (21:00)
== END 2024-04-23 13:42 | disposition left against medical advice (07) ==
LOC: MS 15:35 → ED 15:35 → MS 19:56
PROVIDERS: ADMIT Nurse Practitioner Family; ATTEND Family Medicine